=== PATIENT | female | born 1965 | race Native Hawaiian/Other Pacific Islander ===

== ENCOUNTER 2021-02-20 16:58 | Emergency (ER) | payer OTHER ==
[~2021-02-20] VITALS: Ht 170.2 cm; Wt 157.4 kg
[~2021-02-20 16:58] MED LIST: CLON0.1T16 PO; METO50TE2 PO
[2021-02-20 17:23] VITALS: BP 140/67
--- NOTE | 2021-02-20 18:47 | NUR ---
ABULATED TO ER BED 12
--- NOTE | 2021-02-20 18:59 | NUR ---
Pt resting in bed, visible equal rise and fall of chest, family at pt bedside. Will re-assess.
--- NOTE | 2021-02-20 19:22 | NUR ---
PATIENT 55 Y/O FEMALE BIB SON FOR C/O BLODDY TOOTH S/P DENTAL EXTACTION EARLIER TODAY. PER PATIENT NO ANTIBIOTIC RX OR PAIN RX PRESCIBED TO HER S/P DENTAL SURGERY. PATIENT STATES GUMS WERE BLOODY AND WHEN SHE LOOKED AT IT "IT MADE ME DIZZY." PATIENT DENIES PAIN AT THIS TIME AND STATES, "IT COMES AND GOES BUT ITS FINE RIGHT NOW." MEDHX: HTN NKA
--- NOTE | 2021-02-20 19:23 | NUR ---
GAVE REPORT TO YOMI ETIENNE. TRANSFER OF CARE AT THIS TIME.
[2021-02-20] MEDS ORDERED: ACET-8386 PO (19:28)
[2021-02-20] MEDS ORDERED: AMOX500C25 PO (19:28)
[2021-02-20] MEDS: TRANEXAMIC ACID 1,000 MG/10 ML VIAL MC ONE (19:30)
[2021-02-20 19:44] VITALS: BP 140/67
--- NOTE | 2021-02-20 19:44 | NUR ---
Patient discharged with v/s stable. Written and verbal after care instructions given and explained. Patient alert, oriented and verbalized understanding of instructions. Ambulatory with steady gait. All questions addressed prior to discharge. ID band removed. Patient advised to follow up with PMD. Rx of NORCO, AMOXICILLIN given. Patient educated on indication of medication including possible reaction and side effects. Opportunity to ask questions provided and answered.
== END 2021-02-20 19:44 | disposition home or self-care (01) ==
LOC: MED 16:58
DX: G89.18 Other acute postprocedural pain (principal); K08.89 Other specified disorders of teeth and supporting structures; I10 Essential (primary) hypertension; Z79.899 Other long term (current) drug therapy
CPT/HCPCS: 90471; 99283; J3490

== ENCOUNTER 2022-06-19 20:56 | Emergency (ER) | payer OTHER ==
[~2022-06-19] VITALS: Ht 170.2 cm; Wt 140.6 kg
[2022-06-19 20:56] VITALS: BP 143/96
[~2022-06-19 20:56] MED LIST changes: +ACET-8386 PO; +AMOX500C25 PO
--- NOTE | 2022-06-19 21:08 | NUR ---
PT TO BED 1
[2022-06-19] MEDS ORDERED: TRANEXAMIC ACID 1,000 MG/10 ML VIAL MC ONE (21:30)
[2022-06-19] MEDS ORDERED: PHENYLEPHRINE 0.5% 15 ML BTL NS ONE (21:30)
[2022-06-19] MEDS ORDERED: PHENYLEPHRINE 1% 15 ML BTL NS ONE (21:43)
--- NOTE | 2022-06-19 21:50 | NUR ---
BOTH MEDICATIONS ADMINISTERED BY DR. FISHER. TXA WAS GIVEN TOPICAL BY . PT TOLERATED WELL.
--- NOTE | 2022-06-19 21:54 | NUR ---
AT BEDSIDE FOR PROCEDURE.
[2022-06-19] MEDS ORDERED: MORPHINE SULFATE 4 MG/ML SYR IM ONE (22:05)
[2022-06-20] MEDS ORDERED: hydrALAZINE 20 MG/ML VIAL IVP ONE
[2022-06-20] MEDS ORDERED: CLONIDINE HYDROCHLORIDE 0.1 MG TAB PO ONE (01:20)
[2022-06-20] MEDS ORDERED: AMOX-999 PO (01:39)
[2022-06-20] MEDS ORDERED: ONDANSETRON 4 MG ODT ONE (02:13)
[2022-06-20] MEDS ORDERED: ONDANSETRON 4 MG ODT PO ONE (02:15)
[2022-06-20] MEDS ORDERED: ONDA-188 PO (02:32)
[2022-06-20 02:40] VITALS: BP 183/103
--- NOTE | 2022-06-20 02:47 | NUR ---
Patient discharged with v/s stable. Written and verbal after care instructions given and explained. Patient alert, oriented and verbalized understanding of instructions. Wheel Chair Assisted with to car. All questions addressed prior to discharge. ID band removed. Patient advised to follow up with PMD. Rx of antibiotics given. Patient educated on indication of medication including possible reaction and side effects. Opportunity to ask questions provided and answered.
== END 2022-06-20 02:47 | disposition home or self-care (01) ==
LOC: MED 20:56
DX: R04.0 Epistaxis (principal); I10 Essential (primary) hypertension; Z79.899 Other long term (current) drug therapy; Z98.890 Other specified postprocedural states
CPT/HCPCS: 30901; 96374; 96375; 99284; J0360; J2270; J3490; Q0162